=== PATIENT | female | born 1970 | race African-American/Black ===

== ENCOUNTER 2019-06-15 | Emergency (ER) | payer OTHER ==
[~2019-06-15] MED LIST: CIPRO500 MG PO; MAALOX REG OR; MEDDOSEPAK OR; MIRALAX3350 NF PO; MULTI VIT PO; NAPROSYN500 MG PO; NEXIUM40 M1 PO; NO HOME MEDS; PREVACID30 M3 PO; SIMVASTATIN40 MG PO
[2019-06-15 09:49] LABS: URINE BILIRUBIN - DIPSTICK NEGATIVE (NEGATIVE); URINE BLOOD DIPSTICK NEGATIVE (NEGATIVE); URINE COLOR YELLOW; URINE GLUCOSE - DIPSTICK NEGATIVE (NEGATIVE); URINE KETONE NEGATIVE (NEGATIVE); URINE LEUK ESTERASE NEGATIVE (NEGATIVE); URINE NITRITE - DIPSTICK NEGATIVE (Negative); URINE PH 5.5 (4.5-8.0); URINE PROTEIN - DIPSTICK NEGATIVE (NEG-TRACE); URINE UROBILINOGEN - DIPSTICK 0.2 E.U./dL (0.2)
[2019-06-15] MEDS ORDERED: CEPHALEXIN500 M1 PO (10:18)
== END 2019-06-15 10:40 | disposition home or self-care (01) | DRG 153 ==
PROVIDERS: Emergency Medicine
DX: J06.9 Acute upper respiratory infection, unspecified (principal); Z20.828 Contact with and (suspected) exposure to other viral communicable diseases

== ENCOUNTER 2020-09-03 08:07 | Day surgery (SDC) | payer OTHER ==
[~2020-09-03] VITALS: Ht 162.6 cm; Wt 90.7 kg
[~2020-09-03 08:07] MED LIST changes: +ALTOPREV20 MG PO; +CEPHALEXIN500 M1 PO; +PRILOSEC20 MG/CAP PO; +STOOL SOFTENER1 TA2 PO
[2020-09-03 11:17] VITALS: BP 128/68
== END 2020-09-03 11:30 | disposition home or self-care (01) | DRG 392 ==
LOC: ENDO 08:07 → ORM 09:30 → ENDO 11:30
PROVIDERS: ATTEND Surgery
PROC: 0DJ08ZZ Inspection of Upper Intestinal Tract, Via Natural or Artificial Opening Endoscopic (ICD-10-PCS; principal; 2020-09-03)
PROC: 0DJD8ZZ Inspection of Lower Intestinal Tract, Via Natural or Artificial Opening Endoscopic (ICD-10-PCS; 2020-09-03)
DX: K21.9 Gastro-esophageal reflux disease without esophagitis (principal); K29.70 Gastritis, unspecified, without bleeding; D18.03 Hemangioma of intra-abdominal structures; Z12.11 Encounter for screening for malignant neoplasm of colon; K64.8 Other hemorrhoids; Z86.010 Personal history of colon polyps; Z79.899 Other long term (current) drug therapy

== ENCOUNTER → 2020-11-15 | Outpatient (REF) | payer OTHER | END | disposition home or self-care (01) | DRG 204 | LOC: DI 13:00 | PROVIDERS: ATTEND Physician Assistant Medical | DX: R05 Cough (principal); M79.642 Pain in left hand ==

== ENCOUNTER 2022-08-29 17:03 | Emergency (ER) | payer OTHER ==
[~2022-08-29] VITALS: Ht 162.6 cm; Wt 95.0 kg
[2022-08-29] MEDS ORDERED: CEPHALEXIN500 MG PO (18:18)
[2022-08-29 19:03] VITALS: BP 135/82
== END 2022-08-29 19:13 | disposition home or self-care (01) | DRG 605 ==
LOC: ED 17:03
PROC: 0HQNXZZ Repair Left Foot Skin, External Approach (ICD-10-PCS; principal; 2022-08-29)
DX: S91.115A Laceration without foreign body of left lesser toe(s) without damage to nail, initial encounter (principal); W22.09XA Striking against other stationary object, initial encounter; Y92.009 Unspecified place in unspecified non-institutional (private) residence as the place of occurrence of the external cause